=== PATIENT | female | born 1970 | race Two or more races ===

== ENCOUNTER → 2025-02-27 | Outpatient (CLI) | payer OTHER, SELFPAY ==
[2025-02-27 14:25] LABS: Collection Type, Urine Clean Catch
[2025-02-27 16:49] LABS: Bilirubin,Urine Negative (Negative); Blood,Urine Trace (Negative); Clarity,Urine Clear (Clear/Hazy); Color,Urine Lt-Yellow (Lt Yel-Yel); Glucose, Urine Negative (Negative); Ketones,Urine Negative (Negative); Leukocyte Esterase,Urine Positive (Negative); Nitrite,Urine Negative (Negative); Protein,Urine Trace (Neg - Trace); RBC,Urine 4 /hpf (0-3); Specific Gravity,Urine 1.023 (1.001-1.035); Squamous Epithelial Cell,Urine 3 /hpf (0-5); Urobilinogen,Urine Negative mg/dL (0.0-1.0); WBC,Urine 3 /hpf (0-5)
== END | disposition home or self-care (01) ==
LOC: SLDO 14:20
PROVIDERS: PCP Registered Nurse; Referring Provider Registered Nurse; Visit Provider Registered Nurse
DX: N39.0 Urinary tract infection, site not specified (principal)
CPT/HCPCS: 81001; 87086

== ENCOUNTER → 2025-03-01 | Outpatient (CLI) | payer OTHER, SELFPAY ==
--- NOTE | 2025-03-01 10:18 | XR_ITS ---
Examination: Abdomen AP single view Technique: AP portable supine abdomen, single view Exam date and time: March 01, 2025 1027 hours INDICATIONS: Abdominal pain one month FINDINGS: Moderate stool throughout the colon No obstruction No free air. No renal or ureteral calculi Surgical clips upper right abdomen IMPRESSION: Nonobstructive bowel gas pattern
--- NOTE | 2025-03-01 10:20 | XR_ITS ---
Examination: Retroperitoneal ultrasound, complete Technique: Multiple high resolution grayscale images of the retroperitoneum obtained, including kidneys and bladder. Exam date and time:March 01, 2025 1112 hours INDICATIONS: Bilateral flank pain one month FINDINGS: Right kidney 11.6 cm renal cortex 1.9 cm Left kidney 11.1 cm renal cortex 1.7 cm Mild renal parenchymal scar formation. No hydronephrosis or renal calculi No bladder mass or bladder calculi Bladder prevoid volume 364 cc IMPRESSION: Mild bilateral renal parenchymal scar formation No hydronephrosis or renal calculi
--- NOTE | 2025-03-01 10:20 | XR_ITS ---
Examination: Abdomen sonogram, complete Date and time of exam: March 01, 2025 1103 hours INDICATIONS: Bilateral flank pain beginning one month ago. Technique: Multiple real-time grayscale transabdominal sonographic images of the abdomen have been obtained. Findings: Absent gallbladder Normal common bile duct 0.6 cm Pancreatic head 2.4 cm Aorta not enlarged Liver 10.5 cm fatty infiltration no focal liver lesions Normal hepatopedal portal venous flow Patent IVC Right kidney 10.9 cm renal cortex 1.7 cm Left kidney 11.1 cm cortex 2.2 cm Mild renal parenchymal scar formation Spleen 8.6 cm Impression: Normal common bile duct Fatty infiltration throughout the liver
[2025-03-01 13:40] LABS: Alanine Aminotransferase 51 U/L (10-49); Albumin, Serum 4.6 gm/dL (3.5-5.0); Albumin/Globulin Ratio 2.0 (1.2-2.2); Alkaline Phosphatase 184 U/L (46-116); Anion Gap 5 (7-16); Aspartate Amino Transferase 28 U/L (0-34); BUN/Creatinine Ratio 21 Ratio (12-20); Bilirubin,Total 1.2 mg/dL (0.3-1.2); Blood Urea Nitrogen 15 mg/dL (9-23); Calcium 10.7 mg/dL (8.3-10.6); Calcium (Corrected) 10.7 mg/dL (8.5-10.1); Carbon Dioxide 28.7 mMol/L (20.0-31.0); Chloride 108 mMol/L (98-107); Creatinine (Component) 0.7 mg/dL (0.6-1.3); Globulin 2.3 gm/dL (2.3-3.5); Glucose 97 mg/dL (74-106); Osmolality,Calculated 283 (275-295); Potassium 4.0 mMol/L (3.4-5.1); Sodium 142 mMol/L (136-145); Total Protein 6.9 gm/dL (5.7-8.2); eGFR > 60 See Note
== END | disposition home or self-care (01) ==
PROVIDERS: PCP Family Medicine; Referring Provider Registered Nurse; Visit Provider Radiology Diagnostic Radiology
DX: N23 Unspecified renal colic (principal); N28.89 Other specified disorders of kidney and ureter; K76.0 Fatty (change of) liver, not elsewhere classified; R10.9 Unspecified abdominal pain; K91.5 Postcholecystectomy syndrome
CPT/HCPCS: 36415; 74018; 76700; 76770; 80053